=== PATIENT | male | born 1995 | race Caucasian/White ===

== ENCOUNTER 2020-04-28 21:30 | Inpatient (IN) | payer BC ==
[~2020-04-28] VITALS: Ht 172.7 cm; Wt 87.1 kg
[2020-04-28 21:45] VITALS: BP 104/63
[2020-04-29] MEDS ORDERED: ACETAMINOPHEN 650MG/20.3ML UDC PO PRN
[2020-04-29] MEDS ORDERED: IPRATROPIUM/ALBUTEROL 0.5-3(2.5)MG/3ML NEB HHN SCH
[2020-04-29] MEDS ORDERED: BISACODYL 10MG SUPP PR PRN
[2020-04-29] MEDS: PROPRANOLOL HCL 10MG TABLET PO SCH ×3 (05:55→17:48)
[2020-04-29 07:55] LABS: EOSINOPHILS % 4.9 % (0.0-5.0); HEMATOCRIT. 38.2 % (42.0-52.0); HEMOGLOBIN. 12.8 g/dL (14.0-18.0); LYMPHOCYTES % 58.3 % (20.0-50.0); MEAN CORPUSCULAR HEMOGLOBIN 28.9 pg (28.0-32.0); MEAN CORPUSCULAR VOLUME 86.4 fL (80.0-94.0); MEAN PLATELET VOLUME 8.8 fl (7.4-10.4); MONOCYTES % 13.1 % (2.0-8.0); NEUTROPHILS % 22.7 % (40.0-76.0); PLATELET 298 x1000/uL (130-400); RED BLOOD CELL COUNT 4.42 mill/uL (4.7-6.1); RED CELL DISTRIBUTION WIDTH 15.6 % (11.6-14.6)
[2020-04-29 08:00] VITALS: BP 108/74
[2020-04-29] MEDS: DOCUSATE SODIUM 100MG CAPSULE PO SCH ×2 (08:04→17:00)
[2020-04-29 08:20] LABS: CHLORIDE 105 mEq/L (98-107)
[2020-04-29] MEDS: FAMOTIDINE 20MG TABLET PO SCH ×2 (09:17→20:41)
[2020-04-29] MEDS: ENOXAPARIN 40MG/0.4ML SYR SUBCUT SCH (09:18)
[2020-04-29] MEDS: TRAMADOL 50MG TABLET PO PRN (12:32)
[2020-04-29 20:00] VITALS: BP 104/72
[2020-04-29] MEDS: SENNOSIDES/DOCUSATE SOD 8.6/50MG TABLET PO PRN (20:41)
[2020-04-30] MEDS: PROPRANOLOL HCL 10MG TABLET PO SCH ×5 (05:24→17:58)
[2020-04-30 07:21] LABS: BASOPHILS % 0.7 % (0.0-2.0); EOSINOPHILS % 4.3 % (0.0-5.0); HEMATOCRIT. 38.1 % (42.0-52.0); HEMOGLOBIN. 12.7 g/dL (14.0-18.0); LYMPHOCYTES % 51.3 % (20.0-50.0); MEAN CORPUSCULAR HEMOGLOBIN 28.4 pg (28.0-32.0); MEAN CORPUSCULAR VOLUME 85.1 fL (80.0-94.0); MEAN PLATELET VOLUME 8.7 fl (7.4-10.4); MONOCYTES % 11.5 % (2.0-8.0); NEUTROPHILS % 32.2 % (40.0-76.0); PLATELET 292 x1000/uL (130-400); RED BLOOD CELL COUNT 4.47 mill/uL (4.7-6.1); RED CELL DISTRIBUTION WIDTH 15.6 % (11.6-14.6)
[2020-04-30 07:42] LABS: FERRITIN 83 ng/mL (22-322)
[2020-04-30] MEDS ORDERED: LACTULOSE 20G/30ML UDC PO PRN (07:45)
[2020-04-30 07:54] VITALS: BP 103/64
[2020-04-30 07:56] LABS: CHLORIDE 104 mEq/L (98-107)
[2020-04-30 08:03] LABS: PHOSPHORUS 4.4 mg/dL (2.5-4.9); TOTAL IRON BINDING CAPACITY 228 ug/dL (250-450)
[2020-04-30 08:22] LABS: FOLIC ACID (FOLATE) SERUM > 20.00 ng/mL (>5.38)
[2020-04-30 08:30] LABS: VITAMIN B12 SERUM 983 pg/mL (211-911)
[2020-04-30] MEDS: DOCUSATE SODIUM 100MG CAPSULE PO SCH ×2 (09:08→17:00)
[2020-04-30] MEDS: ENOXAPARIN 40MG/0.4ML SYR SUBCUT SCH (09:09)
[2020-04-30] MEDS: FAMOTIDINE 20MG TABLET PO SCH ×2 (09:09→21:34)
[2020-04-30] MEDS: TRAMADOL 50MG TABLET PO PRN (11:08)
[2020-04-30 20:00] VITALS: BP 114/70
[2020-05-01 05:25] VITALS: BP 104/72
[2020-05-01] MEDS: PROPRANOLOL HCL 10MG TABLET PO SCH ×2 (05:34→06:00)
[2020-05-01 08:00] VITALS: BP 112/72
[2020-05-01] MEDS ORDERED: FENTANYL 50MCG/HR PATCH TOP SCH (09:00)
[2020-05-01] MEDS: ENOXAPARIN 40MG/0.4ML SYR SUBCUT SCH (11:23)
[2020-05-01] MEDS: DOCUSATE SODIUM 100MG CAPSULE PO SCH ×2 (11:23→16:34)
[2020-05-01] MEDS: FAMOTIDINE 20MG TABLET PO SCH ×2 (11:23→20:28)
[2020-05-01 20:00] VITALS: BP 108/70
[2020-05-01] MEDS: SENNOSIDES/DOCUSATE SOD 8.6/50MG TABLET PO PRN (20:28)
[2020-05-02] MEDS: PROPRANOLOL HCL 10MG TABLET PO SCH (06:00)
[2020-05-02 08:00] VITALS: BP 104/74
[2020-05-02] MEDS: FAMOTIDINE 20MG TABLET PO SCH (08:40)
[2020-05-02] MEDS: DOCUSATE SODIUM 100MG CAPSULE PO SCH (08:40)
[2020-05-02] MEDS: ENOXAPARIN 40MG/0.4ML SYR SUBCUT SCH (08:40)
[2020-05-02 16:24] VITALS: BP 105/70
[2020-05-06 15:08] LABS: 25-HYDROXY VITAMIN D3 31 ng/mL (.)
== END 2020-05-02 16:41 | disposition short-term general hospital (02) | DRG 84 ==
PROVIDERS: ADMIT Physical Medicine & Rehabilitation Spinal Cord Injury Medicine; ATTEND Internal Medicine Pulmonary Disease
DX: S06.6X9A Traumatic subarachnoid hemorrhage with loss of consciousness of unspecified duration, initial encounter (principal); S06.5X9A Traumatic subdural hemorrhage with loss of consciousness of unspecified duration, initial encounter; S01.81XA Laceration without foreign body of other part of head, initial encounter; R79.89 Other specified abnormal findings of blood chemistry; D64.9 Anemia, unspecified; D72.819 Decreased white blood cell count, unspecified; R26.9 Unspecified abnormalities of gait and mobility; R53.81 Other malaise; R13.10 Dysphagia, unspecified; M21.372 Foot drop, left foot; V89.2XXA Person injured in unspecified motor-vehicle accident, traffic, initial encounter; Y92.410 Unspecified street and highway as the place of occurrence of the external cause; S82.892A Other fracture of left lower leg, initial encounter for closed fracture; S52.002A Unspecified fracture of upper end of left ulna, initial encounter for closed fracture
CPT/HCPCS: 36415; 71045; 73060; 73080; 73090; 73610; 80053; 82306; 82607; 82728; 82746; 83540; 83550; 83735; 84100; 84134; 84443; 85025; 87102; 92523; 92610; 93970; 97110; 97112; 97116; 97162; 97166; 97530; 97535; 97760; A4565; J1650

== ENCOUNTER 2020-05-02 16:49 | Inpatient (IN) | payer BC ==
[~2020-05-02] VITALS: Ht 172.7 cm; Wt 87.1 kg
[2020-05-02 16:45] VITALS: BP 122/78
[2020-05-02 18:00] VITALS: BP 108/74
[2020-05-02] MEDS ORDERED: SENNOSIDES/DOCUSATE SOD 8.6/50MG TABLET PO PRN (18:00)
[2020-05-02] MEDS ORDERED: LACTULOSE 20G/30ML UDC PO PRN (18:00)
[2020-05-02] MEDS ORDERED: NON FORMULARY PATIENT HOME MED XX SCH (18:00)
[2020-05-02] MEDS ORDERED: ALBUTEROL (0.083%) 2.5MG/3ML NEB HHN PRN (18:39)
[2020-05-02 20:00] VITALS: BP 109/68
[2020-05-02] MEDS: PROPRANOLOL HCL 10MG TABLET PO SCH (21:00)
[2020-05-02] MEDS: FAMOTIDINE 20MG TABLET PO SCH (21:52)
[2020-05-02] MEDS: DOCUSATE SODIUM 100MG CAPSULE PO SCH (21:53)
[2020-05-03] VITALS: BP 103/59
[2020-05-03 04:00] VITALS: BP 104/66
[2020-05-03 07:54] LABS: INR 1.2; PARTIAL THROMBOPLASTIN TIME 29.1 sec (23.4-31.0); PROTHROMBIN TIME 12.3 sec (9.6-11.0)
[2020-05-03 08:00] VITALS: BP 110/68
[2020-05-03] MEDS: DOCUSATE SODIUM 100MG CAPSULE PO SCH ×3 (08:37→18:08)
[2020-05-03] MEDS: FAMOTIDINE 20MG TABLET PO SCH ×3 (08:37→22:13)
[2020-05-03] MEDS: PROPRANOLOL HCL 10MG TABLET PO SCH ×3 (08:39→22:13)
[2020-05-03] MEDS: ENOXAPARIN 40MG/0.4ML SYR SUBCUT SCH (09:00)
[2020-05-03] MEDS ORDERED: GLYCOPYRROLATE 0.2 MG/ML 2ML VIAL ONE (10:23)
[2020-05-03] MEDS ORDERED: HYDROMORPHONE HCL/PF 2MG/ML (OR) ONE (10:35)
[2020-05-03] MEDS ORDERED: CEFAZOLIN SODIUM 1000MG/VIAL ONE (10:48)
[2020-05-03] MEDS ORDERED: SUCCINYLCHOLINE CHLORIDE 200MG/10ML IV ONE (10:52)
[2020-05-03] MEDS ORDERED: BUPIVACAINE HCL/PF 0.25% (2.5MG/ML) 10ML ONE (11:00)
[2020-05-03] MEDS ORDERED: VANCOMYCIN HCL 1 GM/VIAL ONE (11:00)
[2020-05-03] MEDS ORDERED: LABETALOL 5MG/ML SYR 20 MG/4 ML SYRINGE IV PRN (12:00)
[2020-05-03] MEDS ORDERED: ONDANSETRON HCL 4MG/2ML INJ IV PRN (12:00)
[2020-05-03] MEDS: HYDROMORPHONE HCL/PF 2MG/ML CPJ IV PRN ×6 (12:30→13:15)
[2020-05-03] MEDS: MEPERIDINE HCL/PF 25MG/ML CPJ IV PRN ×2 (12:48→13:06)
[2020-05-03] MEDS: IPRATROPIUM/ALBUTEROL 0.5-3(2.5)MG/3ML NEB HHN SCH (14:58)
[2020-05-03] MEDS: CEFAZOLIN 2,000 MG in DEXT 5% WATER 100 ML IV SCH ×2 (14:58→22:13)
[2020-05-03 16:00] VITALS: BP 121/78
[2020-05-03] MEDS: HYDROCODONE/ACETAMINOPHEN 5/325MG TABLET PO PRN ×2 (18:16→22:30)
[2020-05-03 20:00] VITALS: BP 129/77
[2020-05-04] VITALS: BP 128/76
[2020-05-04] MEDS: IPRATROPIUM/ALBUTEROL 0.5-3(2.5)MG/3ML NEB HHN SCH ×3 (00:18→20:27)
[2020-05-04 04:00] VITALS: BP 124/70
[2020-05-04] MEDS: TRAMADOL 50MG TABLET PO PRN ×2 (04:56→14:07)
[2020-05-04] MEDS: CEFAZOLIN 2,000 MG in DEXT 5% WATER 100 ML IV SCH ×3 (05:23→21:25)
[2020-05-04 08:00] VITALS: BP 116/79
[2020-05-04] MEDS: DOCUSATE SODIUM 100MG CAPSULE PO SCH ×2 (09:43→17:53)
[2020-05-04] MEDS: FAMOTIDINE 20MG TABLET PO SCH ×2 (09:44→21:25)
[2020-05-04] MEDS: PROPRANOLOL HCL 10MG TABLET PO SCH ×2 (09:44→21:25)
[2020-05-04] MEDS: ENOXAPARIN 40MG/0.4ML SYR SUBCUT SCH (09:45)
[2020-05-04] MEDS: HYDROCODONE/ACETAMINOPHEN 5/325MG TABLET PO PRN ×3 (10:04→23:11)
[2020-05-04] MEDS: FENTANYL 50MCG/HR PATCH TOP SCH (11:18)
[2020-05-04 11:55] VITALS: BP 113/76
[2020-05-04 15:55] VITALS: BP 124/74
[2020-05-04 20:00] VITALS: BP 132/86
[2020-05-05] MEDS: IPRATROPIUM/ALBUTEROL 0.5-3(2.5)MG/3ML NEB HHN SCH ×2 (01:26→20:55)
[2020-05-05] MEDS: CEFAZOLIN 2,000 MG in DEXT 5% WATER 100 ML IV SCH (05:25)
[2020-05-05 08:00] VITALS: BP 119/89
[2020-05-05] MEDS: TRAMADOL 50MG TABLET PO PRN ×2 (09:24→18:13)
[2020-05-05] MEDS: FAMOTIDINE 20MG TABLET PO SCH ×2 (09:24→23:15)
[2020-05-05] MEDS: PROPRANOLOL HCL 10MG TABLET PO SCH ×2 (09:24→23:15)
[2020-05-05] MEDS: DOCUSATE SODIUM 100MG CAPSULE PO SCH ×3 (09:24→18:13)
[2020-05-05] MEDS: ENOXAPARIN 40MG/0.4ML SYR SUBCUT SCH (09:25)
[2020-05-05 12:00] VITALS: BP_SYST 123; BP_SYST 138; BP_DIAS 72; BP_DIAS 79
[2020-05-05] MEDS: HYDROCODONE/ACETAMINOPHEN 5/325MG TABLET PO PRN (14:07)
[2020-05-05 15:43] LABS: BASOPHILS % 0.6 % (0.0-2.0); HEMATOCRIT. 37.7 % (42.0-52.0); HEMOGLOBIN. 12.8 g/dL (14.0-18.0); LYMPHOCYTES % 33.3 % (20.0-50.0); MEAN CORPUSCULAR VOLUME 85.7 fL (80.0-94.0); MEAN PLATELET VOLUME 9.3 fl (7.4-10.4); MONOCYTES % 10.5 % (2.0-8.0); NEUTROPHILS % 52.6 % (40.0-76.0); PLATELET 315 x1000/uL (130-400); RED CELL DISTRIBUTION WIDTH 15.9 % (11.6-14.6)
[2020-05-05 16:08] VITALS: BP 120/84
[2020-05-05 16:20] LABS: CHLORIDE 102 mEq/L (98-107)
[2020-05-05 20:00] VITALS: BP 110/73
[2020-05-05] MEDS: POLYETHYLENE GLYCOL 3350 (17GM) 1 DOSE PACK PO SCH (23:14)
[2020-05-06] MEDS: HYDROCODONE/ACETAMINOPHEN 5/325MG TABLET PO PRN (06:11)
[2020-05-06 08:00] VITALS: BP 106/71
[2020-05-06] MEDS: IPRATROPIUM/ALBUTEROL 0.5-3(2.5)MG/3ML NEB HHN SCH ×2 (08:09→15:11)
[2020-05-06] MEDS: DOCUSATE SODIUM 100MG CAPSULE PO SCH ×4 (09:00→17:00)
[2020-05-06] MEDS: FAMOTIDINE 20MG TABLET PO SCH ×2 (09:19→21:05)
[2020-05-06] MEDS: BISACODYL 5MG TABLET PO PRN (09:20)
[2020-05-06] MEDS: ENOXAPARIN 40MG/0.4ML SYR SUBCUT SCH (09:20)
[2020-05-06] MEDS: PROPRANOLOL HCL 10MG TABLET PO SCH (10:37)
[2020-05-06] MEDS: TRAMADOL 50MG TABLET PO PRN ×2 (10:37→22:30)
[2020-05-06 20:00] VITALS: BP 111/75
[2020-05-06] MEDS: POLYETHYLENE GLYCOL 3350 (17GM) 1 DOSE PACK PO SCH (20:44)
[2020-05-07] VITALS: BP 108/70
[2020-05-07 04:00] VITALS: BP 108/66
[2020-05-07] MEDS: IPRATROPIUM/ALBUTEROL 0.5-3(2.5)MG/3ML NEB HHN SCH ×4 (04:16→20:45)
[2020-05-07 08:18] VITALS: BP 117/82
[2020-05-07] MEDS: DOCUSATE SODIUM 100MG CAPSULE PO SCH ×4 (09:00→17:05)
[2020-05-07] MEDS: FAMOTIDINE 20MG TABLET PO SCH ×2 (09:27→21:08)
[2020-05-07] MEDS: TRAMADOL 50MG TABLET PO PRN (09:28)
[2020-05-07] MEDS: ENOXAPARIN 40MG/0.4ML SYR SUBCUT SCH (09:29)
[2020-05-07] MEDS: PROPRANOLOL HCL 10MG TABLET PO SCH ×3 (11:57→23:32)
[2020-05-07] MEDS: FENTANYL 50MCG/HR PATCH TOP SCH (11:58)
[2020-05-07] MEDS: ACETAMINOPHEN 325MG TABLET PO PRN (17:17)
[2020-05-07 20:00] VITALS: BP 102/65
[2020-05-07] MEDS: POLYETHYLENE GLYCOL 3350 (17GM) 1 DOSE PACK PO SCH (21:00)
[2020-05-07] MEDS: HYDROCODONE/ACETAMINOPHEN 5/325MG TABLET PO PRN (21:16)
[2020-05-08] MEDS: IPRATROPIUM/ALBUTEROL 0.5-3(2.5)MG/3ML NEB HHN SCH ×2 (00:45→19:55)
[2020-05-08] MEDS: PROPRANOLOL HCL 10MG TABLET PO SCH ×5 (06:09→23:33)
[2020-05-08 08:00] VITALS: BP 106/72
[2020-05-08] MEDS: DOCUSATE SODIUM 100MG CAPSULE PO SCH ×3 (09:00→18:13)
[2020-05-08] MEDS: FAMOTIDINE 20MG TABLET PO SCH ×2 (09:00→20:32)
[2020-05-08] MEDS: ENOXAPARIN 40MG/0.4ML SYR SUBCUT SCH (09:00)
[2020-05-08] MEDS ORDERED: BUPIVACAINE HCL/PF 0.25% (2.5MG/ML) 10ML ONE (10:06)
[2020-05-08] MEDS ORDERED: VANCOMYCIN HCL 1 GM/VIAL ONE (10:06)
[2020-05-08] MEDS ORDERED: SKIN ADHESIVE 0.7 GM EA TOP ONE (10:07)
[2020-05-08] MEDS ORDERED: BACITRACIN 50,000 UNITS/VIAL ONE (10:07)
[2020-05-08] MEDS ORDERED: FENTANYL CITRATE/PF 50MCG/ML 2ML VIAL ONE (10:33)
[2020-05-08] MEDS ORDERED: PROPOFOL 200MG/20ML VIAL IV ONE ×2 (10:34→10:36)
[2020-05-08] MEDS ORDERED: LIDOCAINE HCL/PF 1% 10 MG/ML 5ML VIAL ONE (10:39)
[2020-05-08] MEDS ORDERED: HYDROMORPHONE HCL/PF 2MG/ML (OR) ONE (11:15)
[2020-05-08] MEDS ORDERED: BUPIVACAINE HCL 0.5% (5MG/ML) 50ML ONE (13:46)
[2020-05-08] MEDS ORDERED: BUPIVACAINE HCL/PF 0.5% (5MG/ML) 10ML ONE (13:47)
[2020-05-08] MEDS ORDERED: CEFAZOLIN SODIUM 1000MG/VIAL IV SCH (14:00)
[2020-05-08] MEDS: HYDROMORPHONE HCL/PF 2MG/ML CPJ IV PRN ×4 (14:32→15:34)
[2020-05-08] MEDS ORDERED: ONDANSETRON HCL 4MG/2ML INJ IV PRN (14:45)
[2020-05-08] MEDS ORDERED: HYDROMORPHONE HCL/PF 2MG/ML CPJ IV PRN (14:45)
[2020-05-08] MEDS: CEFAZOLIN 1000MG PREMIX 50 ML IV SCH (18:29)
[2020-05-08 20:00] VITALS: BP 107/55
[2020-05-08] MEDS: POLYETHYLENE GLYCOL 3350 (17GM) 1 DOSE PACK PO SCH (20:32)
[2020-05-09] MEDS: CEFAZOLIN 1000MG PREMIX 50 ML IV SCH ×3 (02:05→17:23)
[2020-05-09 04:00] VITALS: BP 108/62
[2020-05-09] MEDS: PROPRANOLOL HCL 10MG TABLET PO SCH ×4 (06:00→23:25)
[2020-05-09 08:00] VITALS: BP 109/76
[2020-05-09] MEDS: ENOXAPARIN 40MG/0.4ML SYR SUBCUT SCH (09:10)
[2020-05-09] MEDS: DOCUSATE SODIUM 100MG CAPSULE PO SCH ×2 (09:10→17:21)
[2020-05-09] MEDS: FAMOTIDINE 20MG TABLET PO SCH ×2 (09:10→21:07)
[2020-05-09 12:05] VITALS: BP 116/73
[2020-05-09] MEDS: LACTULOSE 20G/30ML UDC PO SCH ×3 (12:07→21:06)
[2020-05-09] MEDS: HYDROCODONE/ACETAMINOPHEN 5/325MG TABLET PO PRN ×2 (12:07→21:07)
[2020-05-09 16:16] VITALS: BP 119/74
[2020-05-09 19:06] LABS: 25-HYDROXY VITAMIN D3 23 ng/mL (.)
[2020-05-09 20:00] VITALS: BP 117/78
[2020-05-09] MEDS: POLYETHYLENE GLYCOL 3350 (17GM) 1 DOSE PACK PO SCH (21:11)
[2020-05-10] MEDS: CEFAZOLIN 1000MG PREMIX 50 ML IV SCH ×3 (00:52→18:23)
[2020-05-10] MEDS: HYDROCODONE/ACETAMINOPHEN 5/325MG TABLET PO PRN ×3 (01:01→23:36)
[2020-05-10] MEDS: PROPRANOLOL HCL 10MG TABLET PO SCH ×4 (06:25→23:36)
[2020-05-10 08:00] VITALS: BP 129/77
[2020-05-10 08:11] LABS: CHLORIDE 106 mEq/L (98-107)
[2020-05-10 08:16] LABS: BASOPHILS % 0.8 % (0.0-2.0); EOSINOPHILS % 1.6 % (0.0-5.0); HEMATOCRIT. 31.7 % (42.0-52.0); HEMOGLOBIN. 10.6 g/dL (14.0-18.0); LYMPHOCYTES % 52.2 % (20.0-50.0); MEAN CORPUSCULAR HEMOGLOBIN 28.8 pg (28.0-32.0); MEAN CORPUSCULAR VOLUME 86.3 fL (80.0-94.0); MEAN PLATELET VOLUME 8.8 fl (7.4-10.4); MONOCYTES % 11.5 % (2.0-8.0); NEUTROPHILS % 33.9 % (40.0-76.0); PLATELET 337 x1000/uL (130-400); RED BLOOD CELL COUNT 3.68 mill/uL (4.7-6.1); RED CELL DISTRIBUTION WIDTH 15.7 % (11.6-14.6)
[2020-05-10] MEDS: DOCUSATE SODIUM 100MG CAPSULE PO SCH ×2 (10:28→18:23)
[2020-05-10] MEDS: FAMOTIDINE 20MG TABLET PO SCH ×2 (10:28→20:33)
[2020-05-10] MEDS: ENOXAPARIN 40MG/0.4ML SYR SUBCUT SCH (10:29)
[2020-05-10] MEDS: ACETAMINOPHEN 325MG TABLET PO PRN (10:44)
[2020-05-10] MEDS: ERGOCALCIFEROL 50000UNITS CAPSULE PO SCH (13:44)
[2020-05-10] MEDS: DULOXETINE HCL 20MG DR CAPSULE PO SCH (13:45)
[2020-05-10] MEDS: FENTANYL 50MCG/HR PATCH TOP SCH (13:48)
[2020-05-10 20:00] VITALS: BP 126/68
[2020-05-10] MEDS: POLYETHYLENE GLYCOL 3350 (17GM) 1 DOSE PACK PO SCH (20:33)
[2020-05-11] MEDS: CEFAZOLIN 1000MG PREMIX 50 ML IV SCH ×3 (01:47→18:00)
[2020-05-11 06:00] VITALS: BP 110/63
[2020-05-11] MEDS: PROPRANOLOL HCL 10MG TABLET PO SCH ×3 (06:00→18:00)
[2020-05-11] MEDS: ENOXAPARIN 40MG/0.4ML SYR SUBCUT SCH (09:00)
[2020-05-11] MEDS: FAMOTIDINE 20MG TABLET PO SCH ×2 (09:44→21:00)
[2020-05-11] MEDS: DULOXETINE HCL 20MG DR CAPSULE PO SCH (09:44)
[2020-05-11] MEDS: DOCUSATE SODIUM 100MG CAPSULE PO SCH ×2 (09:44→17:00)
[2020-05-11] MEDS: HYDROCODONE/ACETAMINOPHEN 5/325MG TABLET PO PRN (10:08)
[2020-05-11] MEDS ORDERED: VANCOMYCIN HCL 1 GM/VIAL ONE (11:07)
[2020-05-11 12:00] VITALS: BP 119/75
[2020-05-11] MEDS: GABAPENTIN 300MG CAPSULE PO SCH ×2 (15:35→22:00)
[2020-05-11] MEDS ORDERED: GLYCOPYRROLATE 0.2 MG/ML 2ML VIAL ONE (17:28)
[2020-05-11] MEDS ORDERED: CEFAZOLIN SODIUM 1000MG/VIAL ONE (17:29)
[2020-05-11] MEDS ORDERED: HYDROMORPHONE HCL/PF 2MG/ML (OR) ONE (17:32)
[2020-05-11] MEDS ORDERED: MINERAL OIL 10 ML VIAL MC ONE (19:00)
[2020-05-11 20:00] VITALS: BP 117/87
[2020-05-11] MEDS ORDERED: MEPERIDINE HCL/PF 25MG/ML CPJ IV PRN (20:30)
[2020-05-11] MEDS ORDERED: LABETALOL 5MG/ML SYR 20 MG/4 ML SYRINGE IV PRN (20:30)
[2020-05-11] MEDS ORDERED: ONDANSETRON HCL 4MG/2ML INJ IV PRN (20:30)
[2020-05-11] MEDS: HYDROMORPHONE HCL/PF 2MG/ML CPJ IV PRN ×3 (20:34→20:49)
[2020-05-11] MEDS ORDERED: DIPHENHYDRAMINE INJ IV PRN (20:45)
[2020-05-11] MEDS ORDERED: NALOXONE INJ IV PRN (20:45)
[2020-05-11] MEDS ORDERED: HYDROMORPHONE PCA 10MG/50ML IV PRN (20:45)
[2020-05-11] MEDS ORDERED: ONDANSETRON INJ IV PRN (20:45)
[2020-05-11] MEDS: POLYETHYLENE GLYCOL 3350 (17GM) 1 DOSE PACK PO SCH (21:00)
[2020-05-12] VITALS: BP 111/79
[2020-05-12 04:00] VITALS: BP 119/81
[2020-05-12] MEDS: PROPRANOLOL HCL 10MG TABLET PO SCH ×4 (06:00→17:09)
[2020-05-12] MEDS: GABAPENTIN 300MG CAPSULE PO SCH ×3 (06:00→21:52)
[2020-05-12] MEDS: CEFAZOLIN 1000MG PREMIX 50 ML IV SCH ×3 (06:08→17:07)
[2020-05-12 07:55] VITALS: BP 111/72
[2020-05-12] MEDS: DOCUSATE SODIUM 100MG CAPSULE PO SCH ×2 (08:07→17:07)
[2020-05-12] MEDS: FAMOTIDINE 20MG TABLET PO SCH ×2 (08:07→21:53)
[2020-05-12] MEDS: DULOXETINE HCL 20MG DR CAPSULE PO SCH (08:07)
[2020-05-12] MEDS: ENOXAPARIN 40MG/0.4ML SYR SUBCUT SCH (08:08)
[2020-05-12 12:23] VITALS: BP 111/70
[2020-05-12] MEDS ORDERED: HYDROMORPHONE HCL/PF 2MG/ML CPJ IV PRN (13:00)
[2020-05-12 17:08] VITALS: BP 94/63
[2020-05-12 20:00] VITALS: BP 103/68
[2020-05-12] MEDS: POLYETHYLENE GLYCOL 3350 (17GM) 1 DOSE PACK PO SCH (21:52)
[2020-05-13] VITALS: BP 106/68
[2020-05-13] MEDS: HYDROCODONE/ACETAMINOPHEN 10/325MG TABLET PO PRN (00:18)
[2020-05-13] MEDS: CEFAZOLIN 1000MG PREMIX 50 ML IV SCH ×3 (01:53→19:43)
[2020-05-13] MEDS: PROPRANOLOL HCL 10MG TABLET PO SCH ×4 (05:42→18:00)
[2020-05-13] MEDS: GABAPENTIN 300MG CAPSULE PO SCH ×3 (05:48→21:29)
[2020-05-13 08:14] VITALS: BP 106/68
[2020-05-13] MEDS: DOCUSATE SODIUM 100MG CAPSULE PO SCH ×2 (10:02→18:00)
[2020-05-13] MEDS: FAMOTIDINE 20MG TABLET PO SCH ×2 (10:02→21:29)
[2020-05-13] MEDS: DULOXETINE HCL 20MG DR CAPSULE PO SCH (10:02)
[2020-05-13] MEDS: ENOXAPARIN 40MG/0.4ML SYR SUBCUT SCH (10:03)
[2020-05-13] MEDS: BISACODYL 5MG TABLET PO PRN (10:03)
[2020-05-13] MEDS: FENTANYL 50MCG/HR PATCH TOP SCH (13:39)
[2020-05-13] MEDS: ACETAMINOPHEN 325MG TABLET PO PRN (13:40)
[2020-05-13 20:00] VITALS: BP 113/76
[2020-05-13] MEDS: POLYETHYLENE GLYCOL 3350 (17GM) 1 DOSE PACK PO SCH (21:00)
[2020-05-13] MEDS: HYDROMORPHONE HCL/PF 2MG/ML CPJ IV PRN (21:30)
[2020-05-14] VITALS: BP 111/84
[2020-05-14] MEDS: PROPRANOLOL HCL 10MG TABLET PO SCH ×4 (00:39→19:28)
[2020-05-14] MEDS: HYDROCODONE/ACETAMINOPHEN 10/325MG TABLET PO PRN ×3 (00:53→13:18)
[2020-05-14 04:00] VITALS: BP 99/65
[2020-05-14] MEDS: GABAPENTIN 300MG CAPSULE PO SCH ×3 (07:31→21:53)
[2020-05-14 08:00] VITALS: BP 92/57
[2020-05-14] MEDS: DOCUSATE SODIUM 100MG CAPSULE PO SCH ×2 (13:04→19:28)
[2020-05-14] MEDS: FAMOTIDINE 20MG TABLET PO SCH ×2 (13:19→21:53)
[2020-05-14] MEDS: DULOXETINE HCL 20MG DR CAPSULE PO SCH (13:19)
[2020-05-14] MEDS: ENOXAPARIN 40MG/0.4ML SYR SUBCUT SCH (13:20)
[2020-05-14 20:00] VITALS: BP 95/59
[2020-05-14] MEDS: POLYETHYLENE GLYCOL 3350 (17GM) 1 DOSE PACK PO SCH (21:00)
[2020-05-14] MEDS: HYDROMORPHONE HCL/PF 2MG/ML CPJ IV PRN (21:59)
[2020-05-15] VITALS: BP 90/57
[2020-05-15 04:00] VITALS: BP 93/59
[2020-05-15] MEDS: GABAPENTIN 300MG CAPSULE PO SCH (06:26)
[2020-05-15] MEDS: PROPRANOLOL HCL 10MG TABLET PO SCH ×4 (06:27→17:38)
[2020-05-15] MEDS: HYDROCODONE/ACETAMINOPHEN 10/325MG TABLET PO PRN ×2 (06:28→14:18)
[2020-05-15 08:00] VITALS: BP 120/77
[2020-05-15 08:41] LABS: BASOPHILS % 0.3 % (0.0-2.0); HEMATOCRIT. 31.9 % (42.0-52.0); HEMOGLOBIN. 10.5 g/dL (14.0-18.0); LYMPHOCYTES % 48.2 % (20.0-50.0); MEAN CORPUSCULAR HEMOGLOBIN 28.6 pg (28.0-32.0); MEAN CORPUSCULAR VOLUME 86.5 fL (80.0-94.0); MEAN PLATELET VOLUME 8.5 fl (7.4-10.4); MONOCYTES % 11.5 % (2.0-8.0); PLATELET 361 x1000/uL (130-400); RED BLOOD CELL COUNT 3.68 mill/uL (4.7-6.1); RED CELL DISTRIBUTION WIDTH 16.1 % (11.6-14.6)
[2020-05-15] MEDS: FAMOTIDINE 20MG TABLET PO SCH ×2 (08:47→21:45)
[2020-05-15] MEDS: DULOXETINE HCL 20MG DR CAPSULE PO SCH (08:47)
[2020-05-15] MEDS: DOCUSATE SODIUM 100MG CAPSULE PO SCH ×2 (08:47→16:41)
[2020-05-15] MEDS: ENOXAPARIN 40MG/0.4ML SYR SUBCUT SCH (08:48)
[2020-05-15] MEDS: HYDROMORPHONE HCL/PF 2MG/ML CPJ IV PRN ×4 (08:54→23:38)
[2020-05-15 09:18] LABS: CHLORIDE 104 mEq/L (98-107)
[2020-05-15 09:34] LABS: PHOSPHORUS 4.1 mg/dL (2.5-4.9)
[2020-05-15 12:00] VITALS: BP 113/65
[2020-05-15] MEDS: GABAPENTIN 400MG CAPSULE PO SCH ×2 (13:14→21:45)
[2020-05-15 16:00] VITALS: BP 107/72
[2020-05-15 20:00] VITALS: BP 109/59
[2020-05-15] MEDS: POLYETHYLENE GLYCOL 3350 (17GM) 1 DOSE PACK PO SCH (21:00)
[2020-05-16] VITALS: BP 118/79
[2020-05-16] MEDS: PROPRANOLOL HCL 10MG TABLET PO SCH ×4 (00:10→17:15)
[2020-05-16 04:00] VITALS: BP 117/70
[2020-05-16] MEDS: HYDROMORPHONE HCL/PF 2MG/ML CPJ IV PRN ×5 (05:12→23:00)
[2020-05-16] MEDS: GABAPENTIN 400MG CAPSULE PO SCH ×3 (06:19→21:29)
[2020-05-16 08:04] VITALS: BP 123/70
[2020-05-16] MEDS: ENOXAPARIN 40MG/0.4ML SYR SUBCUT SCH (08:17)
[2020-05-16] MEDS: HYDROCODONE/ACETAMINOPHEN 10/325MG TABLET PO PRN ×2 (08:17→17:18)
[2020-05-16] MEDS: FAMOTIDINE 20MG TABLET PO SCH ×2 (08:17→21:30)
[2020-05-16] MEDS: DULOXETINE HCL 20MG DR CAPSULE PO SCH (08:17)
[2020-05-16] MEDS: BISACODYL 5MG TABLET PO PRN (08:18)
[2020-05-16] MEDS: DOCUSATE SODIUM 100MG CAPSULE PO SCH ×2 (08:18→17:15)
[2020-05-16] MEDS: FENTANYL 75MCG/HR PATCH TOP SCH (13:27)
[2020-05-16 20:00] VITALS: BP 120/70
[2020-05-16] MEDS: POLYETHYLENE GLYCOL 3350 (17GM) 1 DOSE PACK PO SCH (21:00)
[2020-05-17] VITALS: BP 108/69
[2020-05-17] MEDS: HYDROMORPHONE HCL/PF 2MG/ML CPJ IV PRN ×5 (03:35→23:13)
[2020-05-17 04:00] VITALS: BP 128/73
[2020-05-17] MEDS: PROPRANOLOL HCL 10MG TABLET PO SCH ×5 (07:08→23:14)
[2020-05-17] MEDS: GABAPENTIN 400MG CAPSULE PO SCH ×3 (07:09→21:31)
[2020-05-17 08:02] VITALS: BP 126/78
[2020-05-17] MEDS: DOCUSATE SODIUM 100MG CAPSULE PO SCH ×2 (08:22→17:01)
[2020-05-17] MEDS: ERGOCALCIFEROL 50000UNITS CAPSULE PO SCH (08:22)
[2020-05-17] MEDS: ENOXAPARIN 40MG/0.4ML SYR SUBCUT SCH (08:22)
[2020-05-17] MEDS: DULOXETINE HCL 20MG DR CAPSULE PO SCH (08:22)
[2020-05-17] MEDS: FAMOTIDINE 20MG TABLET PO SCH ×2 (08:22→21:31)
[2020-05-17] MEDS: HYDROCODONE/ACETAMINOPHEN 10/325MG TABLET PO PRN (09:22)
[2020-05-17 20:00] VITALS: BP 119/66
[2020-05-17] MEDS: POLYETHYLENE GLYCOL 3350 (17GM) 1 DOSE PACK PO SCH (21:00)
[2020-05-18] VITALS (7 sets, daily range): BP systolic 110–145; BP diastolic 65–91
[2020-05-18] MEDS: HYDROCODONE/ACETAMINOPHEN 10/325MG TABLET PO PRN ×3 (00:26→22:09)
[2020-05-18] MEDS: HYDROMORPHONE HCL/PF 2MG/ML CPJ IV PRN ×3 (05:20→17:05)
[2020-05-18] MEDS: GABAPENTIN 400MG CAPSULE PO SCH ×3 (05:21→21:50)
[2020-05-18] MEDS: PROPRANOLOL HCL 10MG TABLET PO SCH ×3 (05:24→18:00)
[2020-05-18 06:36] LABS: BASOPHILS % 0.7 % (0.0-2.0); EOSINOPHILS % 4.5 % (0.0-5.0); HEMATOCRIT. 31.8 % (42.0-52.0); HEMOGLOBIN. 10.6 g/dL (14.0-18.0); LYMPHOCYTES % 42.5 % (20.0-50.0); MEAN CORPUSCULAR HEMOGLOBIN 29.6 pg (28.0-32.0); MEAN CORPUSCULAR VOLUME 88.7 fL (80.0-94.0); MEAN PLATELET VOLUME 8.2 fl (7.4-10.4); NEUTROPHILS % 39.3 % (40.0-76.0); PLATELET 370 x1000/uL (130-400); RED BLOOD CELL COUNT 3.59 mill/uL (4.7-6.1); RED CELL DISTRIBUTION WIDTH 15.6 % (11.6-14.6)
[2020-05-18] MEDS: DULOXETINE HCL 20MG DR CAPSULE PO SCH (08:47)
[2020-05-18] MEDS: FAMOTIDINE 20MG TABLET PO SCH ×2 (08:47→21:50)
[2020-05-18] MEDS: DOCUSATE SODIUM 100MG CAPSULE PO SCH ×2 (08:48→17:03)
[2020-05-18] MEDS: ENOXAPARIN 40MG/0.4ML SYR SUBCUT SCH (08:48)
[2020-05-18 09:06] LABS: CHLORIDE 106 mEq/L (98-107)
[2020-05-18] MEDS: POLYETHYLENE GLYCOL 3350 (17GM) 1 DOSE PACK PO SCH (21:00)
[2020-05-19] VITALS: BP 137/90
[2020-05-19] MEDS: PROPRANOLOL HCL 10MG TABLET PO SCH ×4 (00:48→18:15)
[2020-05-19 04:00] VITALS: BP 122/77
[2020-05-19] MEDS: HYDROCODONE/ACETAMINOPHEN 10/325MG TABLET PO PRN (06:34)
[2020-05-19] MEDS: GABAPENTIN 400MG CAPSULE PO SCH ×3 (06:34→21:32)
[2020-05-19 07:52] VITALS: BP 139/86
[2020-05-19] MEDS: DOCUSATE SODIUM 100MG CAPSULE PO SCH ×2 (09:13→18:14)
[2020-05-19] MEDS: ENOXAPARIN 40MG/0.4ML SYR SUBCUT SCH (09:13)
[2020-05-19] MEDS: DULOXETINE HCL 20MG DR CAPSULE PO SCH (09:13)
[2020-05-19] MEDS: FAMOTIDINE 20MG TABLET PO SCH ×2 (09:13→21:32)
[2020-05-19] MEDS: HYDROMORPHONE HCL/PF 2MG/ML CPJ IV PRN (09:50)
[2020-05-19] MEDS ORDERED: IPRATROPIUM/ALBUTEROL 0.5-3(2.5)MG/3ML NEB HHN PRN (10:15)
[2020-05-19 12:01] VITALS: BP 122/72
[2020-05-19] MEDS: FENTANYL 75MCG/HR PATCH TOP SCH (13:43)
[2020-05-19] MEDS: FLUTICASONE/VILANTEROL 200-25 BLST.W.DEV ORI SCH (13:44)
[2020-05-19] MEDS: OXYCODONE HCL/ACETAMINOPHEN 5/325MG TABLET PO PRN ×2 (15:39→21:32)
[2020-05-19 16:00] VITALS: BP 132/77
[2020-05-19 20:00] VITALS: BP 123/70
[2020-05-19] MEDS: POLYETHYLENE GLYCOL 3350 (17GM) 1 DOSE PACK PO SCH (21:00)
[2020-05-20] MEDS: PROPRANOLOL HCL 10MG TABLET PO SCH ×4 (01:33→17:38)
[2020-05-20] MEDS: OXYCODONE HCL/ACETAMINOPHEN 5/325MG TABLET PO PRN ×4 (04:39→21:34)
[2020-05-20] MEDS: GABAPENTIN 400MG CAPSULE PO SCH (06:19)
[2020-05-20 08:30] VITALS: BP 122/71
[2020-05-20] MEDS: DULOXETINE HCL 20MG DR CAPSULE PO SCH (08:30)
[2020-05-20] MEDS: FAMOTIDINE 20MG TABLET PO SCH ×2 (08:30→21:28)
[2020-05-20] MEDS: ENOXAPARIN 40MG/0.4ML SYR SUBCUT SCH (08:32)
[2020-05-20] MEDS: FLUTICASONE/VILANTEROL 200-25 BLST.W.DEV ORI SCH (08:33)
[2020-05-20] MEDS: DOCUSATE SODIUM 100MG CAPSULE PO SCH ×2 (08:38→17:00)
[2020-05-20 11:47] VITALS: BP 100/68
[2020-05-20] MEDS: GABAPENTIN 100MG CAPSULE PO SCH ×2 (13:52→21:29)
[2020-05-20 17:31] VITALS: BP 117/94
[2020-05-20 20:00] VITALS: BP 126/77
[2020-05-20] MEDS: POLYETHYLENE GLYCOL 3350 (17GM) 1 DOSE PACK PO SCH (21:22)
[2020-05-21] MEDS: PROPRANOLOL HCL 10MG TABLET PO SCH ×4 (00:54→17:07)
[2020-05-21] MEDS: GABAPENTIN 100MG CAPSULE PO SCH ×3 (06:18→21:12)
[2020-05-21] MEDS: OXYCODONE HCL/ACETAMINOPHEN 5/325MG TABLET PO PRN ×3 (06:19→21:13)
[2020-05-21 08:30] VITALS: BP 115/71
[2020-05-21] MEDS: DULOXETINE HCL 20MG DR CAPSULE PO SCH (08:57)
[2020-05-21] MEDS: FAMOTIDINE 20MG TABLET PO SCH ×2 (08:58→21:12)
[2020-05-21] MEDS: FLUTICASONE/VILANTEROL 200-25 BLST.W.DEV ORI SCH (08:58)
[2020-05-21] MEDS: DOCUSATE SODIUM 100MG CAPSULE PO SCH ×2 (08:59→17:00)
[2020-05-21] MEDS: ENOXAPARIN 40MG/0.4ML SYR SUBCUT SCH (09:00)
[2020-05-21 11:50] VITALS: BP 129/75
[2020-05-21 15:59] VITALS: BP 125/72
[2020-05-21 20:00] VITALS: BP_SYST 130; BP_DIAS 59; BP_DIAS 72
[2020-05-21] MEDS: POLYETHYLENE GLYCOL 3350 (17GM) 1 DOSE PACK PO SCH (21:12)
[2020-05-22] VITALS: BP 130/72
[2020-05-22] MEDS: PROPRANOLOL HCL 10MG TABLET PO SCH ×5 (00:36→23:54)
[2020-05-22 04:00] VITALS: BP 127/68
[2020-05-22] MEDS: GABAPENTIN 100MG CAPSULE PO SCH ×3 (05:56→20:54)
[2020-05-22] MEDS: OXYCODONE HCL/ACETAMINOPHEN 5/325MG TABLET PO PRN ×2 (06:03→19:11)
[2020-05-22] MEDS: DOCUSATE SODIUM 100MG CAPSULE PO SCH ×2 (12:36→18:49)
[2020-05-22] MEDS: FLUTICASONE/VILANTEROL 200-25 BLST.W.DEV ORI SCH (12:36)
[2020-05-22] MEDS: DULOXETINE HCL 20MG DR CAPSULE PO SCH (12:36)
[2020-05-22] MEDS: FAMOTIDINE 20MG TABLET PO SCH ×2 (12:37→20:54)
[2020-05-22] MEDS: ENOXAPARIN 40MG/0.4ML SYR SUBCUT SCH (12:37)
[2020-05-22] MEDS: FENTANYL 75MCG/HR PATCH TOP SCH (13:20)
[2020-05-22 20:38] VITALS: BP 103/68
[2020-05-22] MEDS: POLYETHYLENE GLYCOL 3350 (17GM) 1 DOSE PACK PO SCH (20:54)
[2020-05-23] VITALS: BP 123/70
[2020-05-23 04:00] VITALS: BP 124/70
[2020-05-23] MEDS: OXYCODONE HCL/ACETAMINOPHEN 5/325MG TABLET PO PRN ×2 (05:52→23:40)
[2020-05-23] MEDS: PROPRANOLOL HCL 10MG TABLET PO SCH ×4 (05:53→23:38)
[2020-05-23] MEDS: GABAPENTIN 100MG CAPSULE PO SCH ×3 (05:53→22:10)
[2020-05-23 08:00] VITALS: BP 100/65
[2020-05-23 08:29] LABS: BASOPHILS % 0.9 % (0.0-2.0); EOSINOPHILS % 2.5 % (0.0-5.0); LYMPHOCYTES % 55.8 % (20.0-50.0); MEAN CORPUSCULAR HEMOGLOBIN 30.1 pg (28.0-32.0); MEAN CORPUSCULAR VOLUME 87.8 fL (80.0-94.0); MEAN PLATELET VOLUME 8.5 fl (7.4-10.4); MONOCYTES % 12.5 % (2.0-8.0); NEUTROPHILS % 28.3 % (40.0-76.0); PLATELET 351 x1000/uL (130-400); RED BLOOD CELL COUNT 3.98 mill/uL (4.7-6.1); RED CELL DISTRIBUTION WIDTH 16.3 % (11.6-14.6)
[2020-05-23 08:49] LABS: CHLORIDE 105 mEq/L (98-107)
[2020-05-23] MEDS: FLUTICASONE/VILANTEROL 200-25 BLST.W.DEV ORI SCH (08:52)
[2020-05-23] MEDS: DULOXETINE HCL 30MG DR CAPSULE PO SCH (08:54)
[2020-05-23] MEDS: DOCUSATE SODIUM 100MG CAPSULE PO SCH ×2 (08:54→18:35)
[2020-05-23] MEDS: ENOXAPARIN 40MG/0.4ML SYR SUBCUT SCH (08:55)
[2020-05-23] MEDS: FAMOTIDINE 20MG TABLET PO SCH ×2 (08:55→22:10)
[2020-05-23 20:00] VITALS: BP 119/71
[2020-05-23] MEDS: POLYETHYLENE GLYCOL 3350 (17GM) 1 DOSE PACK PO SCH (21:00)
[2020-05-24] VITALS: BP 104/76
[2020-05-24 06:00] VITALS: BP 122/75
[2020-05-24] MEDS: GABAPENTIN 100MG CAPSULE PO SCH ×3 (06:50→21:57)
[2020-05-24] MEDS: PROPRANOLOL HCL 10MG TABLET PO SCH ×3 (06:51→17:33)
[2020-05-24] MEDS: ERGOCALCIFEROL 50000UNITS CAPSULE PO SCH (08:36)
[2020-05-24] MEDS: DULOXETINE HCL 30MG DR CAPSULE PO SCH (08:36)
[2020-05-24] MEDS: DOCUSATE SODIUM 100MG CAPSULE PO SCH ×2 (08:37→17:33)
[2020-05-24] MEDS: ENOXAPARIN 40MG/0.4ML SYR SUBCUT SCH (08:37)
[2020-05-24] MEDS: FAMOTIDINE 20MG TABLET PO SCH ×2 (08:37→21:57)
[2020-05-24] MEDS: OXYCODONE HCL/ACETAMINOPHEN 5/325MG TABLET PO PRN (13:45)
[2020-05-24 18:43] VITALS: BP 107/79
[2020-05-24 20:00] VITALS: BP 124/74
[2020-05-24] MEDS: POLYETHYLENE GLYCOL 3350 (17GM) 1 DOSE PACK PO SCH (21:00)
[2020-05-25] VITALS: BP 110/85
[2020-05-25 04:00] VITALS: BP 96/52
[2020-05-25 06:00] VITALS: BP 104/50
[2020-05-25] MEDS: GABAPENTIN 100MG CAPSULE PO SCH ×3 (06:19→21:05)
[2020-05-25] MEDS: PROPRANOLOL HCL 10MG TABLET PO SCH ×5 (06:21→23:40)
[2020-05-25] MEDS: OXYCODONE HCL/ACETAMINOPHEN 5/325MG TABLET PO PRN ×2 (06:21→20:52)
[2020-05-25 08:00] VITALS: BP 138/80
[2020-05-25] MEDS: DOCUSATE SODIUM 100MG CAPSULE PO SCH ×2 (08:51→17:19)
[2020-05-25] MEDS: DULOXETINE HCL 30MG DR CAPSULE PO SCH (08:51)
[2020-05-25] MEDS: ENOXAPARIN 40MG/0.4ML SYR SUBCUT SCH (08:51)
[2020-05-25] MEDS: FAMOTIDINE 20MG TABLET PO SCH ×2 (08:51→20:52)
[2020-05-25] MEDS: FLUTICASONE/VILANTEROL 200-25 BLST.W.DEV ORI SCH (08:52)
[2020-05-25 12:00] VITALS: BP 150/51
[2020-05-25] MEDS: FENTANYL 75MCG/HR PATCH TOP SCH (14:40)
[2020-05-25 20:00] VITALS: BP_SYST 119; BP_SYST 157; BP_DIAS 41; BP_DIAS 72
[2020-05-25] MEDS: POLYETHYLENE GLYCOL 3350 (17GM) 1 DOSE PACK PO SCH (21:00)
[2020-05-26] VITALS: BP 136/85
[2020-05-26] MEDS: PROPRANOLOL HCL 10MG TABLET PO SCH ×3 (05:14→17:38)
[2020-05-26] MEDS: GABAPENTIN 100MG CAPSULE PO SCH ×3 (05:15→22:00)
[2020-05-26 08:00] VITALS: BP 115/84
[2020-05-26] MEDS ORDERED: VANCOMYCIN HCL 1 GM/VIAL ONE (08:24)
[2020-05-26] MEDS ORDERED: BACITRACIN 15GM TUBE TOP ONE (08:25)
[2020-05-26] MEDS ORDERED: BACITRACIN 50,000 UNITS/VIAL ONE (08:25)
[2020-05-26] MEDS: ENOXAPARIN 40MG/0.4ML SYR SUBCUT SCH (09:00)
[2020-05-26] MEDS: DULOXETINE HCL 30MG DR CAPSULE PO SCH (09:00)
[2020-05-26] MEDS: FAMOTIDINE 20MG TABLET PO SCH ×2 (09:00→21:00)
[2020-05-26] MEDS: DOCUSATE SODIUM 100MG CAPSULE PO SCH ×2 (09:00→16:18)
[2020-05-26] MEDS ORDERED: FENTANYL CITRATE/PF 50MCG/ML 2ML VIAL ONE (09:51)
[2020-05-26] MEDS ORDERED: PROPOFOL 200MG/20ML VIAL IV ONE (09:52)
[2020-05-26] MEDS ORDERED: MIDAZOLAM HCL 2 MG/2 ML VIAL ONE (09:52)
[2020-05-26] MEDS ORDERED: ONDANSETRON HCL 4MG/2ML INJ ONE (10:04)
[2020-05-26] MEDS ORDERED: DEXAMETHASONE 4MG/ML 1ML VIAL ONE (10:04)
[2020-05-26] MEDS ORDERED: ONDANSETRON HCL 4MG/2ML INJ IV PRN (10:15)
[2020-05-26] MEDS ORDERED: MEPERIDINE HCL/PF 25MG/ML CPJ IV PRN (10:15)
[2020-05-26] MEDS ORDERED: LABETALOL 5MG/ML SYR 20 MG/4 ML SYRINGE IV PRN (10:15)
[2020-05-26] MEDS: HYDROMORPHONE HCL/PF 2MG/ML CPJ IV PRN ×2 (10:35→10:54)
[2020-05-26] MEDS: OXYCODONE HCL/ACETAMINOPHEN 5/325MG TABLET PO PRN ×3 (11:50→21:30)
[2020-05-26 20:00] VITALS: BP 122/77
[2020-05-26] MEDS: POLYETHYLENE GLYCOL 3350 (17GM) 1 DOSE PACK PO SCH (21:00)
[2020-05-27] VITALS: BP 101/62
[2020-05-27 04:00] VITALS: BP 121/71
[2020-05-27] MEDS: PROPRANOLOL HCL 10MG TABLET PO SCH ×4 (05:35→17:43)
[2020-05-27] MEDS: GABAPENTIN 100MG CAPSULE PO SCH ×3 (05:36→21:15)
[2020-05-27] MEDS: OXYCODONE HCL/ACETAMINOPHEN 5/325MG TABLET PO PRN ×3 (05:37→21:15)
[2020-05-27 07:50] VITALS: BP 122/56
[2020-05-27] MEDS: ENOXAPARIN 40MG/0.4ML SYR SUBCUT SCH (09:32)
[2020-05-27] MEDS: DOCUSATE SODIUM 100MG CAPSULE PO SCH ×2 (09:32→17:43)
[2020-05-27] MEDS: FAMOTIDINE 20MG TABLET PO SCH ×2 (09:32→21:15)
[2020-05-27] MEDS: FLUTICASONE/VILANTEROL 200-25 BLST.W.DEV ORI SCH ×2 (09:32→12:20)
[2020-05-27] MEDS: DULOXETINE HCL 30MG DR CAPSULE PO SCH (09:32)
[2020-05-27 16:26] VITALS: BP 120/67
[2020-05-27 20:00] VITALS: BP 128/75
[2020-05-27] MEDS: POLYETHYLENE GLYCOL 3350 (17GM) 1 DOSE PACK PO SCH (21:00)
[2020-05-28] VITALS: BP 102/72
[2020-05-28 05:00] VITALS: BP 139/80
[2020-05-28] MEDS: PROPRANOLOL HCL 10MG TABLET PO SCH ×4 (06:11→17:33)
[2020-05-28] MEDS: GABAPENTIN 100MG CAPSULE PO SCH ×3 (06:11→20:44)
[2020-05-28] MEDS: OXYCODONE HCL/ACETAMINOPHEN 5/325MG TABLET PO PRN (06:12)
[2020-05-28] MEDS: FAMOTIDINE 20MG TABLET PO SCH ×2 (08:27→20:44)
[2020-05-28] MEDS: DULOXETINE HCL 30MG DR CAPSULE PO SCH (08:27)
[2020-05-28] MEDS: DOCUSATE SODIUM 100MG CAPSULE PO SCH ×2 (08:27→17:32)
[2020-05-28] MEDS: ENOXAPARIN 40MG/0.4ML SYR SUBCUT SCH (08:28)
[2020-05-28] MEDS ORDERED: ALBUTEROL 6.7GM HFA INHALER ORI PRN (11:00)
[2020-05-28 12:14] VITALS: BP 127/66
[2020-05-28] MEDS: FENTANYL 75MCG/HR PATCH TOP SCH (13:05)
[2020-05-28] MEDS: FLUTICASONE/VILANTEROL 200-25 BLST.W.DEV ORI SCH (13:07)
[2020-05-28 16:25] VITALS: BP 124/70
[2020-05-28 20:00] VITALS: BP 101/66
[2020-05-28] MEDS: POLYETHYLENE GLYCOL 3350 (17GM) 1 DOSE PACK PO SCH (20:44)
[2020-05-29] VITALS: BP 114/61
[2020-05-29 04:00] VITALS: BP 117/70
[2020-05-29] MEDS: PROPRANOLOL HCL 10MG TABLET PO SCH ×4 (05:38→17:12)
[2020-05-29] MEDS: GABAPENTIN 100MG CAPSULE PO SCH ×3 (06:12→20:57)
[2020-05-29 07:18] LABS: CHLORIDE 106 mEq/L (98-107)
[2020-05-29 07:43] VITALS: BP 118/72
[2020-05-29 08:05] LABS: BASOPHILS % 0.4 % (0.0-2.0); HEMATOCRIT. 37.5 % (42.0-52.0); HEMOGLOBIN. 12.6 g/dL (14.0-18.0); MEAN CORPUSCULAR VOLUME 89.3 fL (80.0-94.0); MONOCYTES % 11.1 % (2.0-8.0); NEUTROPHILS % 32.5 % (40.0-76.0); PLATELET 305 x1000/uL (130-400); RED CELL DISTRIBUTION WIDTH 15.8 % (11.6-14.6)
[2020-05-29] MEDS: FAMOTIDINE 20MG TABLET PO SCH ×2 (09:00→20:57)
[2020-05-29] MEDS: ENOXAPARIN 40MG/0.4ML SYR SUBCUT SCH (09:00)
[2020-05-29] MEDS ORDERED: SENNOSIDES/DOCUSATE SOD 8.6/50MG TABLET PO PRN (11:15)
[2020-05-29] MEDS ORDERED: LACTULOSE 20G/30ML UDC PO PRN (11:15)
[2020-05-29] MEDS ORDERED: BISACODYL 5MG TABLET PO PRN (11:15)
[2020-05-29] MEDS ORDERED: ACETAMINOPHEN 325MG TABLET PO PRN (11:15)
[2020-05-29] MEDS: OXYCODONE HCL/ACETAMINOPHEN 5/325MG TABLET PO PRN ×2 (11:17→21:01)
[2020-05-29] MEDS: DULOXETINE HCL 30MG DR CAPSULE PO SCH (11:19)
[2020-05-29] MEDS: DOCUSATE SODIUM 100MG CAPSULE PO SCH ×2 (11:19→16:22)
[2020-05-29] MEDS: FLUTICASONE/VILANTEROL 200-25 BLST.W.DEV ORI SCH (11:20)
[2020-05-29] MEDS ORDERED: ENOXAPARIN 40MG/0.4ML SYR SUBCUT SCH (11:30)
[2020-05-29 11:47] VITALS: BP 109/70
[2020-05-29 16:45] VITALS: BP 126/78
[2020-05-29 20:00] VITALS: BP 118/66
[2020-05-29] MEDS: POLYETHYLENE GLYCOL 3350 (17GM) 1 DOSE PACK PO SCH (21:00)
[2020-05-30] VITALS: BP 112/64
[2020-05-30] MEDS: PROPRANOLOL HCL 10MG TABLET PO SCH ×2 (00:29→06:06)
[2020-05-30 04:00] VITALS: BP 121/70
[2020-05-30] MEDS: GABAPENTIN 100MG CAPSULE PO SCH (06:06)
[2020-05-30] MEDS: OXYCODONE HCL/ACETAMINOPHEN 5/325MG TABLET PO PRN (06:10)
[2020-05-30 08:30] VITALS: BP 120/68
[2020-05-30] MEDS ORDERED: ENOXAPARIN 40MG/0.4ML SYR SUBCUT SCH (09:00)
[2020-05-30] MEDS: FLUTICASONE/VILANTEROL 200-25 BLST.W.DEV ORI SCH (09:14)
[2020-05-30] MEDS: FAMOTIDINE 20MG TABLET PO SCH (09:15)
[2020-05-30] MEDS: DOCUSATE SODIUM 100MG CAPSULE PO SCH (09:15)
[2020-05-30] MEDS: DULOXETINE HCL 30MG DR CAPSULE PO SCH (09:15)
[2020-05-30 11:40] VITALS: BP 120/68
== END 2020-05-30 13:40 | disposition home health service (06) | DRG 501 ==
LOC: 4WST 16:49
PROVIDERS: ADMIT Internal Medicine Pulmonary Disease; ATTEND Internal Medicine Pulmonary Disease
PROC: 0RS Upper Joints, Reposition (ICD-10-PCS; 2020-05-03)
PROC: 0MR Bursae and Ligaments, Replacement (ICD-10-PCS; 2020-05-08)
PROC: 0PSJ35Z Reposition Left Radius with External Fixation Device, Percutaneous Approach (ICD-10-PCS; 2020-05-08)
PROC: 0PSL35Z Reposition Left Ulna with External Fixation Device, Percutaneous Approach (ICD-10-PCS; 2020-05-08)
PROC: 0LB60ZZ Excision of Left Lower Arm and Wrist Tendon, Open Approach (ICD-10-PCS; 2020-05-08)
PROC: 0MR Bursae and Ligaments, Replacement (ICD-10-PCS; 2020-05-11)
PROC: 0LBP0ZZ Excision of Left Lower Leg Tendon, Open Approach (ICD-10-PCS; 2020-05-11)
PROC: 0DP6XUZ Removal of Feeding Device from Stomach, External Approach (ICD-10-PCS; principal; 2020-05-15)
PROC: 0RP Upper Joints, Removal (ICD-10-PCS; 2020-05-27)
DX: M24.422 Recurrent dislocation, left elbow (principal); S52.202A Unspecified fracture of shaft of left ulna, initial encounter for closed fracture; S02.92XA Unspecified fracture of facial bones, initial encounter for closed fracture; D64.9 Anemia, unspecified; M21.372 Foot drop, left foot; R13.10 Dysphagia, unspecified; R26.9 Unspecified abnormalities of gait and mobility; F90.9 Attention-deficit hyperactivity disorder, unspecified type; H53.2 Diplopia; E55.9 Vitamin D deficiency, unspecified; F10.10 Alcohol abuse, uncomplicated; R74.8 Abnormal levels of other serum enzymes; M25.322 Other instability, left elbow; S53.32XA Traumatic rupture of left ulnar collateral ligament, initial encounter; Z20.822 Contact with and (suspected) exposure to COVID-19; R53.81 Other malaise; R00.0 Tachycardia, unspecified; R79.89 Other specified abnormal findings of blood chemistry; V49.9XXA Car occupant (driver) (passenger) injured in unspecified traffic accident, initial encounter; Y93.I9 Activity, other involving external motion; Y92.89 Other specified places as the place of occurrence of the external cause; Y99.8 Other external cause status; Z82.49 Family history of ischemic heart disease and other diseases of the circulatory system; D70.9 Neutropenia, unspecified; G62.9 Polyneuropathy, unspecified
CPT/HCPCS: 36415; 73070; 73200; 76000; 80048; 80053; 82306; 83735; 84100; 85025; 86850; 86900; 87426; 88300; 94640; 97110; 97112; 97116; 97140; 97161; 97162; 97164; 97167; 97168; 97530; 97535; A4565; J0330; J0690; J1100; J1170; J1650; J2175; J2250; J2405; J2704; J3010; J3370; J3490; J7040; J7060